=== PATIENT | male | born 1995 | race Hispanic/Latino ===

== ENCOUNTER 2016-12-09 15:22 | Emergency (ER) | payer SELFPAY | END 2016-12-09 15:50 | disposition home or self-care (01) | LOC: ERS 15:22 | DX: S30.21XA Contusion of penis, initial encounter (principal); X58.XXXA Exposure to other specified factors, initial encounter | CPT/HCPCS: 99283 ==

== ENCOUNTER 2017-07-19 17:39 | Emergency (ER) | payer SELFPAY ==
[2017-07-19] MEDS ORDERED: Acetaminophen 500 MG TAB ONE (17:58)
== END 2017-07-19 18:31 | disposition home or self-care (01) ==
LOC: ERS 17:39
DX: S00.03XA Contusion of scalp, initial encounter (principal); W31.89XA Contact with other specified machinery, initial encounter; Y99.0 Civilian activity done for income or pay
CPT/HCPCS: 99283

== ENCOUNTER 2018-07-04 19:11 | Emergency (ER) | payer SELFPAY ==
[2018-07-04] MEDS ORDERED: Adacel (T-DAP) 0.5 ML SYRINGE ONE (21:30)
== END 2018-07-04 21:50 | disposition home or self-care (01) ==
LOC: ERS 19:11
DX: T63.2X1A Toxic effect of venom of scorpion, accidental (unintentional), initial encounter (principal)
CPT/HCPCS: 90471; 90715

== ENCOUNTER 2018-07-15 12:48 | Emergency (ER) | payer SELFPAY ==
--- NOTE | 2018-07-15 13:29 | RAD ---
Exam:Left knee 4 views HISTORY: Patient felt a pop. Pain. COMPARISON: None FINDINGS: Small suprapatellar effusion. Limited evaluation of the patella on the lateral view. No def inite dislocation. No fracture. IMPRESSION: 1. Joint effusion which may be due to internal derangement. MRI is recommended. 2. No fracture.
== END 2018-07-15 14:38 | disposition home or self-care (01) ==
LOC: ERS 12:48
DX: S83.92XA Sprain of unspecified site of left knee, initial encounter (principal); X50.9XXA Other and unspecified overexertion or strenuous movements or postures, initial encounter